=== PATIENT | female | born 1995 | race Caucasian/White ===

== ENCOUNTER 2017-03-18 14:44 | Emergency (ER) | payer MEDICAID ==
[~2017-03-18 14:44] MED LIST: IBUP600 PO; PERI8.6T PO; ZOFR4TAB3 SL
[2017-03-18 15:06] VITALS: BP 130/86; PULSE 108
[2017-03-18 15:16] VITALS: BP 132/85; PULSE 99
--- NOTE | 2017-03-18 15:33 | PD ---
HPI Chief Complaint Vaginal pain Date Seen: Mar 18, 2017 (Tracey Douglass MD R1) Travel History International Travel<30 Days: No Contact w/Intl Traveler<30Days: No Known Affected Area: No (Tracey Douglass MD) History of Present Illness HPI Patient is a 21-year-old at 31/2 weeks gestation that presents to the [facility] ED with chief complaints of sharp, intermittent lower pelvic pain that is worse on the right and radiates into her vaginal area, shortness of breath, headaches, multiple episodes of nonbloody diarrhea of one day duration, back pain, and elevated blood pressure observed in clinic at [facility]. Patient states that the pelvic pain started around Thursday/Thursday but was tolerable until this morning where she had difficulty with movement and with sitting. She also felt very fatigued and was lightheaded in clinic today. Patient also complains of being very sweaty at night and during the day today. Her blood pressure in the ED was initially 140/89 and went down to 130/86 shortly afterwards. She denies gush/leaking of fluid, vaginal bleeding, abnormal vaginal discharge, chest pain, fever, chills, and endorses positive movements. Patient also denies upper respiratory symptoms like cough, nasal discharge, and sore throat, but states that she had red dots of freckles on her face yesterday. Last sexual intercourse was on Thursday. Patient gets her care at [facility]. All labs have been negative or within normal limits. Last ultrasound at 21 weeks was normal. Para: 1 : 2 Miscarriage: 0 : 0 (Tracey Douglass MD) History Past Medical History Narrative Medical Takes 500 mg of magnesium daily dialysis prescribed for leg cramps Medical History: Denies Significant Hx (Tracey Douglass MD) Obstetric History Obstetric History (Tracey Douglass MD) Past Surgical History Narrative Surgical Open 28 cm ovarian cyst removal surgery in 2013 (Tracey Douglass MD) Family History Narrative Family History Diabetes - dad, grandfather Asthma - none Hypertension - unknown (Tracey Douglass MD) Social History Alcohol Use: No Tobacco Use: No Substance Abuse: No (Tracey Douglass MD) Allergies-Medications (Allergen,Severity, Reaction): Coded Allergies: No Known Allergies (Unverified , 03/01/15) Home Meds Discontinued Scripts Ibuprofen (Motrin 600 Mg Tab)600 Mg [id number] Mg PO Q6H PRN ( CRAMPING) # 30 TAB Prov:Jesse Cardona MD R3 09/06/15 Sennosides-Docusate Sodium (Mer-Colace 8.6-50 mg)1 Tab Tab2 Tab PO Q12H PRN ( CONSTIPATION) #30 TAB Prov:Jesse Cardona MD R3 09/06/15 Ondansetron (Zofran ODT)4 Mg Tab4 Mg SL Q6H PRN (nausea) #20 TAB FOR NAUSEA/VOMITING Prov:Boy Ohara DO 03/01/15 Review of Systems General / Constitutional: No: Fever, Chills HENT: Headaches, Lightheadedness Cardiovascular: No: Chest Pain or Discomfort, Edema Respiratory: Short of Breath, No: Cough Gastrointestinal: Diarrhea, No: Nausea, Vomiting Genitourinary: Pelvic Pain, No: Dysuria, Discharge, Vaginal Bleeding Musculoskeletal: Cramping, Edema Skin: No Rash Neurologic: Dizziness, Headache (Eko,Tracey Colon MD R1) Physical Exam Vital Signs Date Time Temp Pulse Resp B/P Pulse Ox O2 Delivery O2 Flow Rate FiO2 03/18/17 15:16 99 132/85 03/18/17 15:06 108 130/86 Narrative GENERAL: Well-nourished, well-developed patient. SKIN: Warm and dry. HEAD: Normocephalic and atraumatic. EYES: No scleral icterus. No injection or drainage. ENT: No nasal drainage noted. Mucous membranes pink. Airway patent. NECK: Supple, trachea midline. No JVD. CARDIOVASCULAR: Regular rate and rhythm without murmurs, gallops, or rubs. RESPIRATORY: Breath sounds equal bilaterally. No accessory muscle use. BREASTS: Bilateral exam showed no masses, no retractions, no nipple discharge. ABDOMEN/GI: Abdomen soft, non-tender, bowel sounds present, no rebound, no guarding Gravid to 31 weeks size GENITOURINARY: External Genitalia: intact and normal in appearance Cervix: posterior Dilatation: closed Effacement: 0% Station: -3 Presentation: vertex Membranes: intact Uterine Contractions: none FHT's: Category: I Baseline: 150 Reactive: Up to 175 Variability: Moderate Decels: None EXTREMITIES: No cyanosis or edema. BACK: Nontender without obvious deformity. No CVA tenderness. NEUROLOGICAL: Awake and alert. Motor and sensory grossly within normal limits. Five out of 5 muscle strength in all muscle groups. Normal speech. (Tracey Douglass MD R1) Data Data Vital Signs Reviewed: Yes Orders Vital Signs (Adult) .ON ADMISSION (03/18/17 15:09) ^ Labor Status (03/18/17 15:09) ^ Non Stress Test (03/18/17 15:09) ^ Hydration (03/18/17 15:09) (Tracey Douglass MD R1) MDM Medical Record Reviewed: Yes Interpretation(s) 21-year-old at 31/2 weeks gestation presents with chief complaints of intermittent, sharp lower pelvic pain, worse on the right that radiates into her vaginal area, shortness of breath and elevated blood pressure. Blood pressure improved with rest and hydration down to 112/70. Plan Intrauterine - tracing reassuring, category 1 -No contractions observed on tocometer -Hydration Discharge recommendations: -Belly band (purchase from maternity store) -Warm water soaks -Tylenol for pain -OTC Imodium for diarrhea -Oral hydration -F/U with OB provider (Tracey Douglass MD R1) Attending Attestation The exam, history, and the medical decision-making described in the above note were completed with the assistance of the resident provider. I reviewed and agree with the findings presented. I attest that I had a [id number] encounter with the patient on the same day, and personally performed and documented my assessment and findings in the medical record. Reviewed supportive measures for musculoskeletal discomfort of including tylenol, warm baths, belly band. (Amaya Hadley MD) Diagnosis Diagnosis: Primary Impression: Pain of round ligament complicating , antepartum Disposition: 01 DISCHARGE HOME Condition: Stable Tracey Douglass MD R1 Mar 18, 2017 15:33 Amaya Hadley MD Mar 18, 2017 16:30
== END 2017-03-18 16:31 | disposition home or self-care (01) ==
LOC: HOBED 14:44
DX: O26.899 Other specified pregnancy related conditions, unspecified trimester (principal); R10.2 Pelvic and perineal pain; R03.0 Elevated blood-pressure reading, without diagnosis of hypertension; Z3A.01 Less than 8 weeks gestation of pregnancy
CPT/HCPCS: 99284

== ENCOUNTER 2017-03-30 11:50 | Emergency (ER) | payer SELFPAY ==
--- NOTE | 2017-03-30 13:04 | PD ---
HPI Chief Complaint sent from [facility] for eval of elevated blood pressure, reports BP 133/107 in the office Date Seen: March 30, 2017 Time Seen: 12:45 Travel History International Travel<30 Days: No Contact w/Intl Traveler<30Days: No Known Affected Area: No History of Present Illness HPI Pt is a 21 y/o with IUP at 33w0d who was sent from office for eval of elevated blood pressure. BP in the office 133/107. PT also reports h/o diarrhea since , watery diarrhea started and pt reports 6+ episodes. Has decreased in frequency since then. Pt reports loose BM this am, but has not had to go since. Pt denies sick contacts. Pt also reports she recently started (about 1 wk ago) magnesium supplements for h/o charley horse. Pt reports she awakes most days with a headache which spontaneously resolves within a few hours without meds. Pt denies swelling, ruq pain, vision changes. She does have a pruritic rash on right forearm which waxes and wains per pt. PT denies contractions, vb, lof. She reports decreased FM past few days but has been feeling movement and noted increased movement during monitoring. Para: 1 : 2 History Past Medical History Medical History: Denies Significant Hx Obstetric History Obstetric History FTSVD x 1 Past Surgical History Narrative Surgical laparotomy for 18 cm ovarian cystectomy Family History Family History: Negative Social History Alcohol Use: No Tobacco Use: No Substance Abuse: No Allergies-Medications (Allergen,Severity, Reaction): Coded Allergies: No Known Allergies (Unverified , 03/01/15) Narrative Medication PNV and OTC magnesium supplement Review of Systems General / Constitutional: No: Fever, Weight Gain, Weight Loss, Chills, Other Eyes: No: Diploplia, Blurred Vision, Visual changes HENT: Headaches Cardiovascular: No: Irregular Rhythm, Chest Pain or Discomfort, Palpitations, Tachycardia, Syncope, Varicosities, Edema, Cyanosis, Other Respiratory: No: Cough, Short of Breath, Wheezing, Other Gastrointestinal: Nausea, Vomiting, Diarrhea, Changes in Bowel Habits Genitourinary: No: Urgency, Frequency, Dysuria, Nocturia, Hematuria, Decreased Urinary Output, Oliguria, Hesitancy, Dribbling, Incontinence, Pelvic Pain, Dyspareunia, Discharge, Menorrhagia, Vaginal Bleeding, Other Musculoskeletal: No: Limited ROM, Weakness, Cramping, Edema, Pain, Other Skin: Rash, Itching Neurologic: No: Weakness, Dizziness, Syncope, Focal Abnormalities, Coordination Problem, Headache, Slurred Speech, Seizures, Other Psychiatric: No: Anxiety, Depression, Suicidal Ideations, Disorder of Thought, Mood Disorder, Substance Abuse, Homicidal Ideation, Other Endocrine: No: Heat Intolerance, Cold Intolerance, Polydipsia, Polyuria, Other Physical Exam 121/86, 124/86, 99, 20. 98.3 Narrative GENERAL: Well-nourished, well-developed patient. SKIN: Warm and dry. HEAD: Normocephalic and atraumatic. EYES: No scleral icterus. No injection or drainage. ENT: No nasal drainage noted. Mucous membranes pink. Airway patent. NECK: Supple, trachea midline. No JVD. CARDIOVASCULAR: Regular rate and rhythm without murmurs, gallops, or rubs. RESPIRATORY: Breath sounds equal bilaterally. No accessory muscle use. ABDOMEN/GI: Abdomen soft, non-tender, bowel sounds present, no rebound, no guarding Gravid GENITOURINARY: External Genitalia: intact and normal in appearance BUS glands: [wnl-] Cervix: posterior Dilatation: closed Effacement: long Station: high Presentation: - Membranes: intact Uterine Contractions: none FHT's: Category: 1 Baseline: 135 Reactive: yes Variability: mod Decels: none EXTREMITIES: No cyanosis or edema. BACK: Nontender without obvious deformity. No CVA tenderness. NEUROLOGICAL: Awake and alert. Motor and sensory grossly within normal limits. Five out of 5 muscle strength in all muscle groups. Normal speech. Data Data Vital Signs Reviewed: Yes Orders Vital Signs (Adult) .ON ADMISSION (03/30/17 12:27) ^ Labor Status (03/30/17 12:27) Urinalysis - C+S If Indicated (03/30/17 12:27) ^ Hydration (03/30/17 12:27) Cbc No Diff, Includes Plts (03/30/17 12:27) Comprehensive Metabolic Panel (03/30/17 12:27) Uric Acid (03/30/17 12:27) Ob/Psych Drug Screen, Urine (03/30/17 12:27) Labs Laboratory Tests Test 03/30/17 12:37 White Blood Count 8.3 TH/MM3 Red Blood Count 4.17 MIL/MM3 Hemoglobin 11.0 GM/DL Hematocrit 33.5 % Mean Corpuscular Volume 80.3 FL Mean Corpuscular Hemoglobin 26.4 PG Mean Corpuscular Hemoglobin 32.9 % Concent Red Cell Distribution Width 14.2 % Platelet Count 220 TH/MM3 Mean Platelet Volume 9.5 FL Urine Color YELLOW Urine Turbidity HAZY Urine pH 6.5 Urine Specific [place] 1.020 Urine Protein TRACE mg/dL Urine Glucose (UA) NEG mg/dL Urine Ketones 10 mg/dL Urine Occult Blood NEG Urine Nitrite NEG Urine Bilirubin NEG Urine Urobilinogen LESS THAN 2.0 MG/DL Urine Leukocyte Esterase LARGE Urine RBC 2 /hpf Urine WBC 7 /hpf Urine Squamous Epithelial 16 /hpf Cells Urine Bacteria MOD /hpf Urine Mucus FEW /lpf Microscopic Urinalysis Comment CULTURE INDICATED Sodium Level 140 MEQ/L Potassium Level 3.1 MEQ/L Chloride Level 109 MEQ/L Carbon Dioxide Level 19.6 MEQ/L Anion Gap 11 MEQ/L Blood Urea Nitrogen 5 MG/DL Creatinine 0.46 MG/DL Estimat Glomerular Filtration 171 ML/MIN Rate Random Glucose 118 MG/DL Uric Acid 4.3 MG/DL Calcium Level 8.5 MG/DL Total Bilirubin 0.3 MG/DL Aspartate Amino Transf 38 U/L (AST/SGOT) Alanine Aminotransferase 112 U/L (ALT/SGPT) Alkaline Phosphatase 150 U/L Total Protein 6.5 GM/DL Albumin 2.5 GM/DL Urine Opiates Screen NEG Urine Barbiturates Screen NEG Urine Amphetamines Screen NEG Urine Benzodiazepines Screen NEG Urine Cocaine Screen NEG Urine Cannabinoids Screen POS MDM Medical Record Reviewed: Yes Narrative Course / MDM 21 y/o with IUP at 33 wks sent for office for eval of elevated blood pressure 1. elevated blood pressure in office (133/107) --PIH labs drawn and UA sent to lab--mildly elevated LFTs, o/w wnl. will have patient complete 24 hour urine outpatient. --normal blood pressure in triage, continue serial pressures --cat 1 tracing 2. diarrhea --d/w pt that the Mag supplement that she recently started may be causing GI symptoms. suggested soaking in epsom salt (Mag salt) for LE cramps to avoid GI side effects --could also have GI virus, but symptoms improving, rec increased hydration. 3. UA abnormal--contaminant versus UTI. f/u urine culture Diagnosis Diagnosis: Primary Impression: Elevated blood pressure affecting in third trimester, antepartum Additional Impression: Diarrhea Disposition: 01 DISCHARGE HOME Condition: Stable Patient Instructions: 24 Hour Urine Collection (GEN), General Instructions, Early Labor Signs (ED) Amaya Hadley MD March 30, 2017 13:04
[2017-03-30 13:12] LABS: HEMATOCRIT 33.5 % (35.0-46.0); MEAN CELL VOLUME 80.3 FL (80.0-100.0); MEAN CORPUSCULAR HEMOGLOBIN 26.4 PG (27.0-34.0); MEAN CORPUSCULAR HGB CONC 32.9 % (32.0-36.0); PLATELET COUNT 220 TH/MM3 (150-450); RED BLOOD COUNT 4.17 MIL/MM3 (4.00-5.30); RED CELL DISTRIBUTION WIDTH 14.2 % (11.6-17.2); REVIEW FLAG FINAL; WHITE BLOOD COUNT 8.3 TH/MM3 (4.0-11.0)
[2017-03-30 13:23] LABS: AMPHETAMINE, URINE NEG (NEG); BARBITURATES, URINE NEG (NEG); COCAINE, URINE NEG (NEG)
[2017-03-30 13:30] LABS: BACTERIA, URINE MOD /hpf; BLOOD, URINE NEG (NEG); COMMENT (UR) CULTURE INDICATED; CULTURE IF INDICATED CULTURE INDICATED; GLUCOSE,URINE NEG (NEG); KETONE, URINE 10 mg/dL (NEG); MUCUS URINE FEW /lpf (OCC); NITRITE,URINE NEG (NEG); PH, URINE 6.5 (5.0-8.5); SQUAMOUS EPITHELIAL CELL URINE 16 /hpf (0-5); URINE COLOR YELLOW (YELLW/STRAW)
[2017-03-30 13:32] LABS: ANION GAP 11 MEQ/L (5-15); AST (GOT) 38 U/L (15-37); BICARBONATE 19.6 MEQ/L (21.0-32.0); BLOOD UREA NITROGEN 5 MG/DL (7-18); CHLORIDE 109 MEQ/L (98-107); GLOMERULAR FILTRATION RATE 171 ML/MIN (>89); POTASSIUM 3.1 MEQ/L (3.5-5.1); SODIUM (NA) 140 MEQ/L (136-145); URIC ACID 4.3 MG/DL (2.6-6.0)
[2017-03-30 13:35] LABS: ALKALINE PHOSPHATASE 150 U/L (45-117); ALT (GPT) 112 U/L (10-53); TOTAL BILIRUBIN ADULT 0.3 MG/DL (0.2-1.0)
[2017-03-30] MEDS ORDERED: POTASSIUM CHLORIDE 20 MEQ CONTROLLED RELEASE TAB PO ONE (14:00)
[2017-04-02 12:53] LABS: BATH SALTS (MDPV) UR NEG (NEG); ECSTASY (MDMA) UR NEG (NEG); GABAPENTIN UR NEG (NEG); HEROIN (6-ACETYLMORPHINE) UR NEG (NEG); K2 SPICE UR NEG (NEG); OBMETHADONE UR NEG (NEG); OXYCODONE (PERCODAN) NEG (NEG); PHENCYCLIDINE URINE NEG (NEG)
[2017-04-02 12:54] LABS: HYDROMORPHONE U NEG (NEG)
== END 2017-03-30 14:23 | disposition home or self-care (01) ==
LOC: HOBED 11:50
DX: O26.93 Pregnancy related conditions, unspecified, third trimester (principal); R03.0 Elevated blood-pressure reading, without diagnosis of hypertension; R19.7 Diarrhea, unspecified; R82.90 Unspecified abnormal findings in urine; R74.8 Abnormal levels of other serum enzymes; Z3A.33 33 weeks gestation of pregnancy; R21 Rash and other nonspecific skin eruption
CPT/HCPCS: 59025; 80053; 80307; 81001; 84550; 85027; 87086; 96374; 99284; G0481

== ENCOUNTER 2017-03-31 19:04 | Emergency (ER) | payer SELFPAY ==
--- NOTE | 2017-03-31 20:32 | PD ---
HPI Chief Complaint Patient returns to bring and her 24-hour urine results this evening, she is having no significant complaints Date Seen: March 31, 2017 Travel History International Travel<30 Days: No Contact w/Intl Traveler<30Days: No Known Affected Area: No History of Present Illness HPI Patient is 21-year-old at 33 weeks followed by Saumya Orta for care who presents tonight to bring and her 24-hour urine results. She' s had some elevated blood pressures at You's office but always been normal here. She denies leakage pain contractions. The baby is active, heart rate tracing is reactive and no contractions noted, she denies visual changes, blurry vision ,swelling ,abdominal pain ,Malaise. Patient states she has headaches in the morning sometimes Para: 1 : 2 History Past Medical History Medical History: Denies Significant Hx Obstetric History Obstetric History One vaginal delivery Social History Alcohol Use: No Tobacco Use: No Substance Abuse: No Allergies-Medications (Allergen,Severity, Reaction): Coded Allergies: No Known Allergies (Unverified , 03/01/15) Review of Systems General / Constitutional: No: Fever, Weight Gain, Chills, Other Eyes: No: Diploplia, Blurred Vision, Visual changes, Pain, Photophobia HENT: No: Headaches, Vertigo, Lightheadedness Cardiovascular: No: Irregular Rhythm, Chest Pain or Discomfort, Palpitations, Tachycardia, Syncope, Varicosities, Edema, Cyanosis Respiratory: No: Cough, Short of Breath, Other Gastrointestinal: No: Nausea, Vomiting, Diarrhea Genitourinary: No: Decreased Urinary Output, Oliguria Musculoskeletal: No: Limited ROM, Weakness, Cramping, Edema, Pain Skin: No Rash, No Itching, No Dryness, No Lumps, No Change in Pigmentation, No Change in Nails, No Alopecia, No Lesions Neurologic: No: Weakness, Dizziness, Syncope, Focal Abnormalities, Coordination Problem, Headache, Slurred Speech, Seizures Psychiatric: No: Depression, Suicidal Ideations, Homicidal Ideation Endocrine: No: Heat Intolerance, Cold Intolerance, Polydipsia, Polyuria, Other Physical Exam Narrative GENERAL: Well-nourished, well-developed patient. SKIN: Warm and dry. HEAD: Normocephalic and atraumatic. EYES: No scleral icterus. No injection or drainage. ENT: No nasal drainage noted. Mucous membranes pink. Airway patent. NECK: Supple, trachea midline. No JVD. CARDIOVASCULAR: Regular rate and rhythm without murmurs, gallops, or rubs. RESPIRATORY: Breath sounds equal bilaterally. No accessory muscle use. BREASTS: Bilateral exam showed no masses , no retractions, no nipple discharge. ABDOMEN/GI: Abdomen soft, non-tender, bowel sounds present, no rebound, no guarding Gravid to [-33] weeks size Fundal Height: [33-] GENITOURINARY: Category: [1-] Baseline: [-133] Reactive: [-yes] Variability: [mod-] Decels: [none-] EXTREMITIES: No cyanosis or edema. BACK: Nontender without obvious deformity. No CVA tenderness. NEUROLOGICAL: Awake and alert. Motor and sensory grossly within normal limits. Five out of 5 muscle strength in all muscle groups. Normal speech. Data Data Labs Patient's 24-hour urine showed 435 mg protein in the 24 hours, she had PIH labs drawn yesterday that was within normal limits except for elevated liver functions are minimally elevated MDM Interpretation(s) Is 21-year-old GE to P1 at 33 weeks followed by Saumya Orta presents to bring in her urine results were 24-hour collection which showed a 435 mg of protein in a 24-hour, she is essentially asymptomatic otherwise her blood pressure night was 125/79, she is no edema no other symptomatology related to preeclampsia, heart rate tracing is reactive and no contractions noted Plan Plan for patient to be at bedrest at home over the next 3 days and presented back here for repeat lab and start another 24-hour urine at that time. She will stay here with her significant results of that lab drawn on Thursday if that is more abnormal or if there is more protein in the urine or for blood pressures higher that she will stay in the hospital. She has been instructed repeatedly to be at bedrest at home only getting up to the bathroom and eat.[ low Na diet] Diagnosis Diagnosis: Primary Impression: Asymptomatic proteinuria Disposition: 01 DISCHARGE HOME Condition: Stable Patient Instructions: General Instructions, Early Labor Signs (ED), Preeclampsia (ED), Movement (ED), Abdominal Pain in (ED) Departure Forms: Tests/Procedures Adolfo Shah II, MD March 31, 2017 20:32
== END 2017-03-31 20:51 | disposition home or self-care (01) ==
LOC: HOBED 19:04
DX: O12.13 Gestational proteinuria, third trimester (principal); Z3A.33 33 weeks gestation of pregnancy
CPT/HCPCS: 59025